=== PATIENT | male | born 1955 | race Caucasian/White ===

== ENCOUNTER 2023-01-28 13:05 | Day surgery (SDC) | payer MEDICARE, OTHER ==
[2023-01-28] MEDS ORDERED: XYLOCAINE 1% HCL 20 ML MDV IJ ONE (13:06)
[2023-01-28] MEDS ORDERED: SYNVISC 16 MG/2 ML SYRINGE IU ONE (13:06)
--- NOTE | 2023-01-28 16:35 | XRAY ---
Indication: Left knee injection. Intraoperative fluoroscopy provided for 6 seconds. Single digital spot image submitted for interpretation demonstrates needle tip projecting over the left femur intercondylar notch. Small amount of contrast injected for needle tip placement. Correlate with intraoperative findings/report.
--- NOTE | 2023-01-28 16:35 | XRAY ---
Indication: Right knee injection. Intraoperative fluoroscopy provided for 11 seconds. Single digital spot image submitted for interpretation demonstrates needle tip projecting over the right femur intercondylar notch. Small amount of contrast injected for needle tip placement. Correlate with intraoperative findings/report.
--- NOTE | 2023-01-28 16:37 | XRAY ---
11 seconds of fluoroscopy was used in surgery for a right intra-articular knee injection.
--- NOTE | 2023-01-28 16:37 | XRAY ---
6 seconds of fluoroscopy was used in surgery for a left intra-articular knee injection.
== END 2023-01-28 15:30 | disposition home or self-care (01) ==
LOC: SDC-PAIN 13:05
PROVIDERS: ATTEND Psychiatry & Neurology Pain Medicine
DX: M17.0 Bilateral primary osteoarthritis of knee (principal); Z79.899 Other long term (current) drug therapy
CPT/HCPCS: 20610; 73560; 77002; J7325; Q9966

== ENCOUNTER 2023-02-04 15:57 | Day surgery (SDC) | payer MEDICARE, OTHER ==
[2023-02-04] MEDS ORDERED: LIDOCAINE HCL 1% 50 MG/5 ML VL PF IJ ONE (15:58)
[2023-02-04] MEDS ORDERED: SYNVISC 16 MG/2 ML SYRINGE IU ONE (15:58)
--- NOTE | 2023-02-04 18:33 | XRAY ---
Indication: Left knee injection. Intraoperative fluoroscopy provided for 7 seconds. Single digital spot image submitted for interpretation demonstrates needle tip projecting over the left femur intercondylar notch. Small amount of contrast injected for needle tip placement. Correlate with intraoperative findings/report.
--- NOTE | 2023-02-04 18:35 | XRAY ---
Indication: Right knee injection. Intraoperative fluoroscopy provided for 5 seconds. Single digital spot image submitted for interpretation demonstrates needle tip projecting over the right femur intercondylar notch. Small amount of contrast injected for needle tip placement. Correlate with intraoperative findings/report.
--- NOTE | 2023-02-05 17:15 | XRAY ---
5 seconds of fluoroscopy was used in surgery for a right knee intra-articular injection.
--- NOTE | 2023-02-05 17:15 | XRAY ---
7 seconds of fluoroscopy was used in surgery for a left knee intra-articular injection.
== END 2023-02-04 17:10 | disposition home or self-care (01) ==
LOC: SDC-PAIN 15:57
PROVIDERS: ATTEND Psychiatry & Neurology Pain Medicine
DX: M17.0 Bilateral primary osteoarthritis of knee (principal); Z79.899 Other long term (current) drug therapy
CPT/HCPCS: 20610; 73560; 77002; J2001; J7325; Q9966

== ENCOUNTER 2023-02-18 16:00 | Day surgery (SDC) | payer MEDICARE, OTHER ==
[2023-02-18] MEDS ORDERED: LIDOCAINE HCL 1% 50 MG/5 ML VL PF IJ ONE (16:01)
[2023-02-18] MEDS ORDERED: GELSYN-3 IU ONE (16:01)
[2023-02-18] MEDS ORDERED: SYNVISC 16 MG/2 ML SYRINGE IU ONE (16:01)
--- NOTE | 2023-02-18 23:30 | XRAY ---
Indication: Right knee injection. Intraoperative fluoroscopy provided for 6 seconds. Single digital spot image submitted for interpretation demonstrates needle tip projecting over the right femur intercondylar notch. Small amount of contrast injected for needle tip placement. Correlate with intraoperative findings/report.
--- NOTE | 2023-02-19 15:07 | XRAY ---
7 seconds of fluoroscopy was used in surgery for a left intra-articular knee injection.
--- NOTE | 2023-02-19 17:33 | XRAY ---
6 seconds of fluoroscopy was used in surgery for a right intra-articular knee injection.
== END 2023-02-18 17:50 | disposition home or self-care (01) ==
LOC: SDC-PAIN 16:00
PROVIDERS: ATTEND Psychiatry & Neurology Pain Medicine
DX: M17.0 Bilateral primary osteoarthritis of knee (principal); Z79.899 Other long term (current) drug therapy
CPT/HCPCS: 20610; 73560; 77002; J2001; J7325; J7328; Q9966

== ENCOUNTER 2023-03-25 13:39 | Day surgery (SDC) | payer MEDICARE, OTHER ==
[2023-03-25] MEDS ORDERED: LIDOCAINE HCL 1% 50 MG/5 ML VL PF IJ ONE (13:40)
[2023-03-25] MEDS ORDERED: Depo-Medrol 40 MG/ML IM ONE (13:40)
[2023-03-25] MEDS ORDERED: Sodium Chloride 0.9(Preservative Free) 10 ML IJ ONE (13:40)
[2023-03-25] MEDS ORDERED: DIPRIVAN 200 MG/20 ML IV ONE (15:58)
[2023-03-25] MEDS ORDERED: Lactated Ringers 1,000 ML IV ONE (17:28)
--- NOTE | 2023-03-25 20:53 | XRAY ---
Indication: Lumbar YAHIR. Intraoperative fluoroscopy provided for 12 seconds. 3 digital spot images submitted for interpretation demonstrates posterior needle tip projecting posterior to lumbosacral junction interspace. Small amount of contrast injected for needle tip placement. Correlate with intraoperative findings/report.
--- NOTE | 2023-03-26 09:02 | XRAY ---
12 seconds of fluoroscopy was used in surgery for a lumbar YAHIR.
== END 2023-03-25 16:25 | disposition home or self-care (01) ==
LOC: SDC-PAIN 13:39
PROVIDERS: ATTEND Psychiatry & Neurology Pain Medicine
DX: M54.16 Radiculopathy, lumbar region (principal)
CPT/HCPCS: 62323; 72100; 77003; J1030; J2001; J2704; Q9966

== ENCOUNTER 2024-01-13 13:43 | Day surgery (SDC) | payer MEDICARE, OTHER ==
[2024-01-13] MEDS ORDERED: Depo-Medrol 40 MG/ML IM ONE (13:44)
[2024-01-13] MEDS ORDERED: LIDOCAINE HCL 2% 100 MG/5 ML IJ ONE (13:44)
[2024-01-13] MEDS ORDERED: Lactated Ringers 1,000 ML IV ONE (15:16)
[2024-01-13] MEDS ORDERED: DIPRIVAN 200 MG/20 ML IV ONE (15:24)
--- NOTE | 2024-01-13 16:33 | XRAY ---
Indication: Bilateral L4-S1 MBB. Intraoperative fluoroscopy provided for 15 seconds. Single digital spot image submitted for interpretation demonstrates posterior needle tips projecting over the expected left and right L4-S1 nerve roots. Correlate with intraoperative findings/report.
--- NOTE | 2024-01-13 16:37 | XRAY ---
15 seconds of fluoroscopy were used in surgery for a bilateral L4-S1 MBB.
== END 2024-01-13 15:53 | disposition home or self-care (01) ==
LOC: SDC-PAIN 13:43
PROVIDERS: ATTEND Psychiatry & Neurology Pain Medicine
DX: M47.816 Spondylosis without myelopathy or radiculopathy, lumbar region (principal)
CPT/HCPCS: 64493; 64494; 72020; 77002; J1010; J2704; J1030

== ENCOUNTER 2024-02-24 10:01 | Day surgery (SDC) | payer MEDICARE ==
[2024-02-24] MEDS ORDERED: BUPIVACAINE 0.5% VIAL IJ ONE (10:02)
[2024-02-24] MEDS ORDERED: Depo-Medrol 40 MG/ML IM ONE (10:02)
[2024-02-24] MEDS ORDERED: DIPRIVAN 200 MG/20 ML IV ONE (11:16)
[2024-02-24] MEDS ORDERED: Lactated Ringers 1,000 ML IV ONE (11:16)
--- NOTE | 2024-02-24 11:56 | XRAY ---
Indication: Bilateral L4-S1 MBB. Intraoperative fluoroscopy provided for 13 seconds. Single digital spot image submitted for interpretation demonstrates posterior needle tips projecting over the expected left and right L4-S1 nerve roots. Correlate with intraoperative findings/report.
--- NOTE | 2024-02-24 12:07 | XRAY ---
13 seconds of fluoroscopy was used in surgery for a bilateral L4-S1 MBB.
== END 2024-02-24 11:43 | disposition home or self-care (01) ==
LOC: SDC-PAIN 10:01
PROVIDERS: ATTEND Psychiatry & Neurology Pain Medicine
DX: M47.816 Spondylosis without myelopathy or radiculopathy, lumbar region (principal)
CPT/HCPCS: 64493; 64494; 72020; 77002; J1010; J2704

== ENCOUNTER 2024-04-13 12:10 | Day surgery (SDC) | payer MEDICARE ==
[2024-04-13] MEDS ORDERED: Depo-Medrol 40 MG/ML IM ONE (12:11)
[2024-04-13] MEDS ORDERED: BUPIVACAINE 0.5% VIAL IJ ONE (12:11)
[2024-04-13] MEDS ORDERED: LIDOCAINE HCL 1% 50 MG/5 ML VL PF IJ ONE (12:11)
[2024-04-13] MEDS ORDERED: DIPRIVAN 200 MG/20 ML IV ONE (14:08)
--- NOTE | 2024-04-13 15:29 | XRAY ---
Indication: Left L4-S1 RFA. Intraoperative fluoroscopy provided for 18 seconds. 4 digital spot image submitted for interpretation demonstrates posterior needle tips projecting over the expected left L4-S1 nerve roots. Correlate with intraoperative findings/report.
[2024-04-13] MEDS ORDERED: Lactated Ringers 1,000 ML IV ONE (15:30)
--- NOTE | 2024-04-13 16:51 | XRAY ---
18 seconds of fluoroscopy was used in surgery for a left L4-S1 RFA.
== END 2024-04-13 14:41 | disposition home or self-care (01) ==
LOC: SDC-PAIN 12:10
PROVIDERS: ATTEND Psychiatry & Neurology Pain Medicine
DX: M47.816 Spondylosis without myelopathy or radiculopathy, lumbar region (principal)
CPT/HCPCS: 64635; 64636; 72100; 77002; J2001; J2704

== ENCOUNTER 2024-04-27 11:07 | Day surgery (SDC) | payer MEDICARE ==
[2024-04-27] MEDS ORDERED: LIDOCAINE HCL 1% 50 MG/5 ML VL PF IJ ONE (11:08)
[2024-04-27] MEDS ORDERED: BUPIVACAINE 0.5% VIAL IJ ONE (11:08)
[2024-04-27] MEDS ORDERED: Depo-Medrol 40 MG/ML IM ONE (11:08)
[2024-04-27] MEDS ORDERED: DIPRIVAN 200 MG/20 ML IV ONE (12:41)
[2024-04-27] MEDS ORDERED: Lactated Ringers 1,000 ML IV ONE (12:44)
--- NOTE | 2024-04-27 13:27 | XRAY ---
Indication: Right L4-S1 RFA. Intraoperative fluoroscopy provided for 15 seconds. 3 digital spot image submitted for interpretation demonstrates posterior needle tips projecting over the expected right L4-S1 nerve roots. Correlate with intraoperative findings/report.
--- NOTE | 2024-04-27 13:30 | XRAY ---
15 seconds of fluoroscopy was used in surgery for a right L4-S1 RFA.
== END 2024-04-27 13:15 ==
LOC: SDC-PAIN 11:07
PROVIDERS: ATTEND Psychiatry & Neurology Pain Medicine
DX: M47.816 Spondylosis without myelopathy or radiculopathy, lumbar region (principal)
CPT/HCPCS: 64635; 64636; 72100; 77002; J2001; J2704

== ENCOUNTER 2024-06-22 08:12 | Day surgery (SDC) | payer MEDICARE ==
[2024-06-22] MEDS ORDERED: Depo-Medrol 40 MG/ML IM ONE (08:13)
[2024-06-22] MEDS ORDERED: LIDOCAINE HCL 1% 50 MG/5 ML VL PF IJ ONE (08:13)
[2024-06-22] MEDS ORDERED: Sodium Chloride 0.9(Preservative Free) 10 ML IJ ONE (08:13)
[2024-06-22] MEDS ORDERED: Lactated Ringers 1,000 ML IV ONE (09:25)
[2024-06-22] MEDS ORDERED: DIPRIVAN 200 MG/20 ML IV ONE ×2 (09:37→09:49)
--- NOTE | 2024-06-22 20:06 | XRAY ---
Indication: Lumbar YAHIR Intraoperative fluoroscopy provided for 32 seconds. 2 digital spot image submitted for interpretation demonstrates posterior needle tip projecting posterior to lumbosacral junction interspace. Small amount of contrast injected for needle tip placement. Correlate with intraoperative findings/report.
--- NOTE | 2024-06-22 20:20 | XRAY ---
32 seconds of fluoroscopy was used in surgery for a lumbar YAHIR.
== END 2024-06-22 10:20 ==
LOC: SDC-PAIN 08:12
PROVIDERS: ATTEND Psychiatry & Neurology Pain Medicine
DX: M54.16 Radiculopathy, lumbar region (principal)
CPT/HCPCS: 62323; 72100; 77003; J2001; J2704; Q9966

== ENCOUNTER 2024-10-13 07:30 | Day surgery (SDC) | payer MEDICARE ==
[2024-10-13] MEDS ORDERED: dexAMETHasone sodium phosphate IJ ONE (07:31)
[2024-10-13] MEDS ORDERED: Sodium Chloride 0.9(Preservative Free) 10 ML IJ ONE (07:31)
[2024-10-13] MEDS ORDERED: propofoL IV ONE (09:04)
--- NOTE | 2024-10-13 10:11 | XRAY ---
Indication: Left L4-S1 transforaminal YAHIR. Intraoperative fluoroscopy provided for 43 seconds. 5 digital spot image submitted for interpretation demonstrates posterior needle tips projecting over the expected left L4 and L5 nerve roots. Small amount of contrast injected for needle tip placement. Correlate with intraoperative findings/report.
--- NOTE | 2024-10-13 10:13 | XRAY ---
43 seconds of fluoroscopy was used in surgery for a left L4-S1 transforaminal YAHIR.
== END 2024-10-13 10:06 | disposition home or self-care (01) ==
LOC: SDC-PAIN 07:30
PROVIDERS: ATTEND Psychiatry & Neurology Pain Medicine
DX: M54.16 Radiculopathy, lumbar region (principal)
CPT/HCPCS: 64483; 64484; 72100; 77003; J1100; J2704; Q9966

== ENCOUNTER 2025-01-11 09:09 | Day surgery (SDC) | payer MEDICARE ==
[2025-01-11] MEDS ORDERED: Sodium Chloride 0.9(Preservative Free) 10 ML IJ ONE (09:10)
[2025-01-11] MEDS ORDERED: dexAMETHasone sodium phosphate IJ ONE (09:10)
[2025-01-11] MEDS ORDERED: Depo-Medrol 40 MG/ML IM ONE (09:10)
[2025-01-11] MEDS ORDERED: LIDOCAINE HCL 1% AMPUL 5 ML IJ ONE (09:10)
[2025-01-11] MEDS ORDERED: propofoL IV ONE (11:45)
--- NOTE | 2025-01-11 12:17 | XRAY ---
Indication: Caudal YAHIR. Intraoperative fluoroscopy provided for 19 seconds. 3 digital spot image submitted for interpretation demonstrates caudal needle tip project over mid sacrum. Small amount of contrast injected for needle tip placement. Correlate with intraoperative findings/report.
--- NOTE | 2025-01-11 12:17 | XRAY ---
Indication: Bilateral piriformis injection. Intraoperative fluoroscopy provided for 22 seconds. 2 digital spot image submitted for interpretation demonstrates posterior needle tips project over expected left and right piriformis. Small amount of contrast injected for needle tip placement. Correlate with intraoperative findings/report.
--- NOTE | 2025-01-11 12:45 | XRAY ---
19 seconds of fluoroscopy used in surgery for a caudal YAHIR.
--- NOTE | 2025-01-11 12:45 | XRAY ---
22 seconds of fluoroscopy used in surgery for bilateral piriformis injections.
== END 2025-01-11 12:17 | disposition home or self-care (01) ==
LOC: SDC-PAIN 09:09
PROVIDERS: ATTEND Psychiatry & Neurology Pain Medicine
DX: M54.16 Radiculopathy, lumbar region (principal); M79.18 Myalgia, other site
CPT/HCPCS: 20552; 62323; 72170; 72220; 77002; J1100; J2704; Q9966